=== PATIENT | female | born 1990 | race Two or more races ===

== ENCOUNTER 2017-08-02 15:09 | Inpatient (IN) | payer OTHER ==
[~2017-08-02] VITALS: Ht 151.1 cm; Wt 74.8 kg
[2017-08-02] MEDS ORDERED: PREN1TAB58 PO (16:23)
[2017-08-02 16:37] VITALS: BP 106/59
[2017-08-02] MEDS ORDERED: 0.9 % SODIUM CHLORIDE 10 ML DISP.SYRIN. IV PRN (17:00)
[2017-08-02] MEDS ORDERED: LIDOCAINE 1% PF 30 ML VIAL. INJ PRN (17:00)
[2017-08-02] MEDS ORDERED: OXYTOCIN 30 UNIT/500 ML PREMIX 500 ML IV PRN (17:00)
[2017-08-02] MEDS ORDERED: IBUPROFEN 800 MG TABLET. PO PRN (17:00)
[2017-08-02] MEDS ORDERED: BUTORPHANOL 2 MG/ML VIAL. IV PRN (17:00)
[2017-08-02] MEDS ORDERED: DINOPROSTONE 10 MG SUPP.VAG VG ONE (17:00)
[2017-08-02] MEDS ORDERED: TERBUTALINE 1 MG/ML VIAL. SQ PRN (17:00)
[2017-08-02] MEDS ORDERED: fentaNYL PF VIAL 100 MCG/2 ML VIAL IV PRN (17:00)
[2017-08-02 17:07] LABS: HEMATOCRIT 32.7 % (36.0-47.0); RED BLOOD COUNT 4.09 x10^6/uL (3.50-5.40); RED CELL DISTRIBUTION WIDTH 15.1 % (11.5-14.5); WHITE BLOOD COUNT 7.3 x10^3/uL (4.0-11.0)
[2017-08-02 18:20] LABS: BILIRUBIN,URINE NEGATIVE (NEG); GLUCOSE,URINE NEGATIVE (NEG); NITRITE,URINE NEGATIVE (NEG); PH,URINE 6.5; PROTEIN,URINE NEGATIVE (NEG-TRACE); UROBILINOGEN,URINE 0.2 mg/dL (0.2 mg/dL)
[2017-08-02 18:26] LABS: BACTERIA,URINE 0 /HPF (0-FEW); RBC,URINE 0 /HPF (0-2); SQUAMOUS EPITHELIAL CELL,UR FEW /LPF; WBC,URINE OCC /HPF (0-4)
[2017-08-02] MEDS: IV RINGERS,LACTATED 1000ML 1,000 ML IV PRN (19:40)
[2017-08-02] MEDS ORDERED: ZOLPIDEM 5 MG TABLET. PO PRN (23:45)
[2017-08-03] MEDS: IV RINGERS,LACTATED 1000ML 1,000 ML IV PRN ×3 (01:56→16:23)
[2017-08-03 05:17] LABS: RPR REFLEX Non Reactive (Non Reactive)
[2017-08-03] MEDS ORDERED: OXYTOCIN 30 UNIT/500 ML PREMIX 500 ML IV ONE ×2 (06:00)
[2017-08-03] MEDS ORDERED: L&D EPIDURAL CASSETTE 100 ML EP ONE (14:22)
[2017-08-03] MEDS ORDERED: ROPIVacaine 0.2% IN 0.9%NACL PF 40 MG/20 ML DISP.SYRIN. ONE ×2 (14:22→14:30)
[2017-08-03] MEDS ORDERED: L&D EPIDURAL CASSETTE 100 ML PUMP.RESVR. EP ONE (14:30)
[2017-08-03] MEDS ORDERED: fentaNYL PF VIAL 100 MCG/2 ML VIAL EPI ONE (14:45)
[2017-08-03] MEDS ORDERED: ONDANSETRON PF 4 MG/2 ML VIAL. IV PRN (14:45)
[2017-08-03] MEDS ORDERED: NALOXONE 0.4 MG/ML VIAL. IV PRN (14:45)
[2017-08-03] MEDS ORDERED: ePHEDrine PF IN SALINE 50 MG/5 ML DISP.SYRIN IV PRN (14:45)
[2017-08-03] MEDS ORDERED: L&D EPIDURAL CASSETTE 100 ML EP PRN (14:45)
[2017-08-03] MEDS ORDERED: ROPIVacaine 0.2% PF 10 ML VIAL. EPI ONE (14:45)
[2017-08-03] MEDS ORDERED: AMPICILLIN SODIUM 2 GM in IV NORMAL SALINE 100ML 100 ML IV ONE (20:00)
--- NOTE | 2017-08-03 21:53 | PDOC1 ---
OB - History Hx of Present Care: Good Care Ultrasounds: Normal mid trimester US Obstetrical Complications: None Medical Complications: None Past Family/Social History * Past Medical, Surgical, Family and Obstetric Histories reviewed from chart. Blood Type: A+ Rubella: Immune RPR/VDRL: Negative GBS Status: Negative HBsAG: Negative OB - Chief Complaint & HPI Date of Admission: Date of Admission: Aug 02, 2017 at 15:09 Chief Complaint/History : 3 Para: 2 EDC: Aug 09, 2017 Reason for admission: induction of labor Admission Nurse Assessment Rev: Yes Problems: OB - Admission Exam Physical Exam Vitals: VS - Last 72 Hours, by Label Date Time Temp Pulse Resp B/P (MAP) Pulse Ox O2 Delivery O2 Flow Rate FiO2 08/03/17 12:24 20 Room Air 08/03/17 11:54 20 Room Air 08/02/17 16:37 98.3 72 20 106/59 (75) 98.3 HEENT: Normal, Nasal Mucosa Normal, Oropharynx Normal, Moist Membranes, Fontanelles Normal Heart: Regular Rate Lungs: Clear, Equal Abdomen: Gravid Extremities: Normal Pulses, No tenderness or swelling Reflexes: Normal Cervical Dilatation: 1cm Effacement: 50% Station: Ballotable Membranes: Intact Amniotic Fluid: Clear Heart Rate: Normal Accelerations: Accelerations Present Decelerations: No decelerations Short Term Variability: Present Cat Swamper Variability: Moderate Assessment/Plan Assessment/Plan TIUP Induction ACSVD Problems: JASON HUNTER MD Aug 03, 2017 21:52
[2017-08-03] MEDS ORDERED: SIMETHICONE 80 MG TAB.CHEW PO PRN (22:00)
[2017-08-03] MEDS ORDERED: diphenhydrAMINE HCL 25 MG CAPSULE PO PRN (22:00)
[2017-08-03] MEDS ORDERED: ZOLPIDEM 5 MG TABLET. PO PRN (22:00)
[2017-08-03] MEDS ORDERED: PHENYLEPH/MINERAL OIL/PETROLAT RECTAL OINTMENT 28GM TUBE. RC PRN (22:00)
[2017-08-03] MEDS ORDERED: OXYTOCIN 30 UNIT/500 ML PREMIX 500 ML IV PRN (22:00)
[2017-08-03] MEDS ORDERED: ACETAMINOPHEN 325 MG TABLET. PO PRN (22:00)
[2017-08-03] MEDS ORDERED: HYDROcodone/APAP 5/325MG 1 TAB TABLET PO PRN (22:00)
[2017-08-03] MEDS ORDERED: 0.9 % SODIUM CHLORIDE 10 ML DISP.SYRIN. IV PRN (22:00)
[2017-08-03] MEDS ORDERED: MAG HYDROX/ALUMINUM HYD/SIMETH 30 ML ORAL.SUSP PO PRN (22:00)
[2017-08-03] MEDS ORDERED: BENZOCAINE 20% TOPICAL AEROSOL SPRAY 57GM CAN. TP PRN (22:00)
[2017-08-03] MEDS ORDERED: MAGNESIUM HYDROXIDE 2,400 MG/30 ML ORAL.SUSP. PO PRN (22:00)
[2017-08-03] MEDS ORDERED: HYDROCORTISONE 1% TOPICAL OINTMENT 30GM TUBE. TP PRN (22:00)
--- NOTE | 2017-08-03 22:09 | PDOC ---
VAGINAL DELIVERY DATE DATE: 08/03/17 TIME: 22:08 : 3 Para: 2 VAGINAL DELIVERY: VTX VACCUM ASSISTED: No PLACENTA: Spontaneous SEX: Female WEIGHT 7#12oz Nuchal Cord: No Amniotic Fluid: Clear PAIN: Epidural EPISIOTOMY: Yes EXTENSION: No EBL 300cc COMPLICATIONS None CONDITION Stable Signs of Intrauterine Infectio: None Shoulder Dystocia: No DIAGNOSIS TIUP del Problems: JASON HUNTER MD Aug 03, 2017 22:09
[2017-08-04] MEDS ORDERED: AMPICILLIN SODIUM 1 GM in IV NORMAL SALINE 50ML 50 ML IV SCH ×2
[2017-08-04] MEDS: IBUPROFEN 800 MG TABLET. PO SCH ×2 (00:14→13:32)
[2017-08-04 00:30] VITALS: BP 98/59
[2017-08-04 01:36] VITALS: BP 100/54
[2017-08-04 04:51] LABS: BASO # 0.1 x10^3/uL (0.0-0.2); BASO % 0 % (0-3); EOS % 0 % (0-3); HEMATOCRIT 29.9 % (36.0-47.0); HEMOGLOBIN 9.9 g/dL (12.0-15.5); LYMPH # 1.5 x10^3/uL (1.0-4.8); LYMPH % 12 % (24-48); MEAN CORPUSCULAR HEMOGLOBIN 27 pg (25-35); MEAN CORPUSCULAR HGB CONC 33 g/dL (31-37); MEAN CORPUSCULAR VOLUME 80 fL (79-100); MONO % 13 % (0-9); NEUT % 75 % (31-73); PLATELET COUNT 243 x10^3/uL (140-400); RED BLOOD COUNT 3.73 x10^6/uL (3.50-5.40); RED CELL DISTRIBUTION WIDTH 15.1 % (11.5-14.5); WHITE BLOOD COUNT 12.9 x10^3/uL (4.0-11.0)
[2017-08-04 05:55] VITALS: BP 102/57
[2017-08-04] MEDS ORDERED: DIPHTH,PERTUSS(ACELL),TET TOX 0.5 ML DISP.SYRIN. VAX IM ONE (09:00)
[2017-08-04] MEDS ORDERED: FLU VACC QS2017-18 (36MOS+)/PF 0.5 ML SYRINGE. VAX IM ONE (09:00)
[2017-08-04] MEDS: FERROUS SULFATE 325 MG TABLET. PO SCH (09:51)
[2017-08-04 11:00] VITALS: BP 94/60
[2017-08-04 13:53] VITALS: BP 94/55
[2017-08-04 23:07] VITALS: BP 100/65
[2017-08-05] MEDS: IBUPROFEN 800 MG TABLET. PO SCH (06:13)
[2017-08-05 06:26] VITALS: BP 104/68
[2017-08-05] MEDS: FERROUS SULFATE 325 MG TABLET. PO SCH (08:44)
[2017-08-05 12:50] VITALS: BP 110/64
--- NOTE | 2017-08-05 13:44 | PDOC ---
Provider Note Provider Note Late entry Doing well VSS Uterus NTTP DC home JASON HUNTER MD Aug 05, 2017 13:44
--- NOTE | 2017-08-05 13:45 | PDOC3 ---
OB DISCHARGE SUMMARY DATE OF ADMISSION: 08/03/17 DATE OF DISCHARGE: 08/05/17 REASON FOR ADMISSION: Induction of labor PROCEDURES: None INTRAPARTUM PROCEDURES: Spontanous Vag Deliv PROCEDURES: None OPERATIONS: None DISCHARGE DIAGNOSIS: Term Delivered DISCHARGE INFORMATION: Activity, Diet HOSPITAL COURSE Unremarkable CONDITION AT DISCHARGE Stable JASON HUNTER MD Aug 05, 2017 13:45
[2017-08-05] MEDS ORDERED: HYDR-971 PO (13:48)
[2017-08-05] MEDS ORDERED: NAPR500T PO (13:48)
== END 2017-08-05 15:55 | disposition home or self-care (01) | DRG 775 ==
LOC: 3 SO LND 15:09
PROVIDERS: ADMIT Specialist; ATTEND Specialist
PROC: 10E0XZZ Delivery of Products of Conception, External Approach (ICD-10-PCS; principal; 2017-08-03)
PROC: 0W8NXZZ Division of Female Perineum, External Approach (ICD-10-PCS; 2017-08-03)
PROC: 3E0R3GC Introduction of Other Therapeutic Substance into Spinal Canal, Percutaneous Approach (ICD-10-PCS; 2017-08-03)
PROC: 3E0P7VZ Introduction of Hormone into Female Reproductive, Via Natural or Artificial Opening (ICD-10-PCS; 2017-08-03)
DX: O80 Encounter for full-term uncomplicated delivery (principal); Z23 Encounter for immunization; Z37.0 Single live birth; Z3A.39 39 weeks gestation of pregnancy
CPT/HCPCS: 36415; 81001; 85025; 85027; 86593; 86850; 86900; 86901; 90686; 90715; J0290; J2590; J2795; J3010; J7120

== ENCOUNTER 2017-09-20 19:21 | Emergency (ER) | payer OTHER ==
[~2017-09-20] VITALS: Ht 154.9 cm; Wt 66.7 kg
[~2017-09-20 19:21] MED LIST: HYDR-971 PO; NAPR-683 PO; PREN1TAB58 PO
[2017-09-20 20:20] VITALS: BP 103/51
[2017-09-20] MEDS ORDERED: ACETAMINOPHEN 500 MG TABLET PO ONE (21:15)
[2017-09-20] MEDS ORDERED: IBUPROFEN 800 MG TABLET. PO ONE (21:15)
[2017-09-20] MEDS ORDERED: DEXAMETHASONE SOD PHOS 20 MG/5 ML VIAL. IM ONE (21:15)
[2017-09-20] MEDS ORDERED: IBUP-1060 PO (22:02)
[2017-09-20] MEDS ORDERED: PRED50TA PO (22:02)
--- NOTE | 2017-09-20 22:03 | PHYS DOC ---
Past Medical History Past Medical History: No Pertinent History Past Surgical History: No Surgical History Alcohol Use: None Drug Use: None Adult General Chief Complaint Chief Complaint: SORE THROAT HPI HPI Patient is a 27 year old female who presents with a sore throat for 2 days. Patient denies any fever but states she has chills. She states she was seen by the OB today and the prescribed azithromycin which she started taking today. She states she is 2 months post and currently breast-feeding. Review of Systems Review of Systems Constitutional: Reports chills, denies fever Eyes: Denies change in visual acuity, redness, or eye pain [] HENT: Reports sore throat. Denies nasal congestion Respiratory: Denies cough or shortness of breath [] Cardiovascular: No additional information not addressed in HPI [] GI: Denies abdominal pain, nausea, vomiting, bloody stools or diarrhea [] : Denies dysuria or hematuria [] Musculoskeletal: Denies back pain or joint pain [] Integument: Denies rash or skin lesions [] Neurologic: Denies headache, focal weakness or sensory changes [] All other systems were reviewed and found to be within normal limits, except as documented in this note. Current Medications Current Medications Current Medications Medications (Trade) Dose Ordered Sig/Faheem Start Time Stop Time Status Last Admin Dose Admin Acetaminophen (Tylenol) 1,000 mg 1X ONCE 09/20/17 21:15 09/20/17 21:26 DC 09/20/17 21:38 1,000 MG Dexamethasone Sodium Phosphate (Decadron) 10 mg 1X ONCE 09/20/17 21:15 09/20/17 21:26 DC 09/20/17 21:38 10 MG Ibuprofen (Motrin) 800 mg 1X ONCE 09/20/17 21:15 09/20/17 21:26 DC 09/20/17 21:38 800 MG Allergies Allergies Allergies Coded Allergies Type Severity Reaction Last Updated Verified No Known Drug Allergies 07/13/14 No Physical Exam Physical Exam Constitutional: Well developed, well nourished, no acute distress, non-toxic appearance. [] HENT: Normocephalic, atraumatic, bilateral external ears normal, oropharynx moist, no oral exudates, nose normal. [] +2 tonsils with mild erythema and exudate bilaterally, midline uvula. +2 anterior cervical adenopathy. Eyes: PERRLA, EOMI, conjunctiva normal, no discharge. [] Neck: Normal range of motion, no tenderness, supple, no stridor. [] Cardiovascular:Heart rate regular rhythm, no murmur [] Lungs & Thorax: Bilateral breath sounds clear to auscultation [] Abdomen: Bowel sounds normal, soft, no tenderness, no masses, no pulsatile masses. [] Skin: Warm, dry, no erythema, no rash. [] Back: No tenderness, no CVA tenderness. [] Extremities: No tenderness, no cyanosis, no clubbing, ROM intact, no edema. [] Neurologic: Alert and oriented X 3, normal motor function, normal sensory function, no focal deficits noted. [] Psychologic: Affect normal, judgement normal, mood normal. [] Current Patient Data Vital Signs Vital Signs Date Time Temp Pulse Resp B/P (MAP) Pulse Ox O2 Delivery O2 Flow Rate FiO2 09/20/17 20:20 103.1 142 20 97 Room Air 103.1 EKG EKG [] Radiology/Procedures Radiology/Procedures [] Course & Med Decision Making Course & Med Decision Making Pertinent Labs and Imaging studies reviewed. (See chart for details) Patient has positive rapid strep. Temperature was 103.1 on arrival to the ED. She was started on azithromycin by the OB today. Instructed patient to continue taking azithromycin. She will be discharged with prednisone for 4 more days, she was given Decadron IM in the ED. Saltwater gargles recommended. Provided return precautions and discharged in stable condition. Dragon Disclaimer Dragon Disclaimer This electronic medical record was generated, in whole or in part, using a voice recognition dictation system. Departure Departure Impression: Primary Impression: Streptococcal infection Additional Impression: Fever Disposition: 01 HOME, SELF-CARE Condition: STABLE Referrals: UNKNOWN PCP NAME (PCP) follow up in one week with your doctor Patient Instructions: Fever, Adult, Strep Throat Additional Instructions: You were seen for strep infection. Take Tylenol every 4 hours and Motrin every 6 hours as needed for febrile pain. Take prednisone for 4 days. Use saltwater gargles. Complete antibiotics you were started on today. Come back to the ED symptoms worsen. Scripts Ibuprofen (IBUPROFEN) 800 Mg Tablet 800 MG PO PRN Q6HRS Y for INFLAMMATION, #20 TAB Prov: MUTUNGA,TRISH THREAD REELER 09/20/17 Prednisone (PREDNISONE) 50 Mg Tablet 1 TAB PO DAILY, #4 TAB Prov: TRISH CHOU APRN 09/20/17 Problem Qualifiers Additional Impression: Fever Fever type: unspecified Qualified Codes: R50.9 - Fever, unspecified TRISH CHOU APRN Sep 20, 2017 22:03
[2017-09-21 07:43] LABS: NEGATIVE OBC STREP NEG; POSITIVE OBC STREP POS
== END 2017-09-20 22:10 | disposition home or self-care (01) ==
LOC: ER 19:21
DX: A49.1 Streptococcal infection, unspecified site (principal); R50.9 Fever, unspecified
CPT/HCPCS: 87880; 96372; 99283; J1100